=== PATIENT | female | born 1965 | race Caucasian/White ===

== ENCOUNTER 2017-05-10 00:19 | Emergency (ER) | payer SELFPAY ==
[~2017-05-10] VITALS: Ht 162.6 cm; Wt 76.7 kg
[2017-05-10 00:23] VITALS: Ht 162.6 cm; Wt 76.7 kg
[2017-05-10 01:43] VITALS: BP 135/90
== END 2017-05-10 01:43 | disposition home or self-care (01) ==
LOC: ED 00:19
DX: H66.91 Otitis media, unspecified, right ear (principal); H81.13 Benign paroxysmal vertigo, bilateral; Z88.0 Allergy status to penicillin